=== PATIENT | female | born 1960 | race Caucasian/White ===

== ENCOUNTER → 2016-12-06 | Outpatient (CLI) | payer OTHER ==
--- NOTE | 2016-12-06 14:05 | CT ---
EXAMINATION TYPE: CT ChestAbdPelvis w con DATE OF EXAM: 12/06/2016 1:35 PM COMPARISON: CT CAP June 03, 2016. Original CT July 19, 2015 HISTORY: follow up non-hodgkins lymphoma CT DLP: 503.8 mGycm. Automated Exposure Control for Dose Reduction was Utilized. CONTRAST: CT scan of the thorax, abdomen and pelvis is performed with oral and with IV Contrast, patient inject ed with 100 mL of Omnipaque 300. FINDINGS: LUNGS: There is fairly moderate emphysematous change in both lungs redemonstrated. No suspicious par enchymal nodule or mass is present bilaterally. There is no pleural effusion or pneumothorax seen. T he tracheobronchial tree is patent. MEDIASTINUM: There are no greater than 1 cm hilar or mediastinal lymph nodes. No cardiomegaly or pe ricardial effusion is seen. OTHER: No additional significant abnormality is seen. LIVER/GB: No significant abnormality is appreciated. PANCREAS: No significant abnormality is seen. SPLEEN: No significant abnormality is seen. ADRENALS: Slight nonspecific nodular thickening to left adrenal gland is stable.. KIDNEYS: No significant abnormality is seen. BOWEL: Oral contrast reaches level of the mid transverse colon. There is no suspicious small or large bowel dilatation seen. GENITAL ORGANS: No gross abnormality seen. LYMPH NODES: No greater than 1cm abdominal or pelvic lymph nodes are appreciated on current study. Ma rked improvement in right inguinal and bilateral groin adenopathy since original study is noted. Stab le slightly prominent but subcentimeter left groin lymph node on axial image 105 is noted. OSSEOUS STRUCTURES: No significant abnormality is seen. OTHER: There appears to be some stable narrowing of the celiac axis at its origin on sagittal image 6 2 with poststenotic dilatation or more likely tortuosity. A median arcuate ligament syndrome is not e ntirely excluded. IMPRESSION: No new mass or adenopathy is seen to suggest neoplastic recurrence.
== END | disposition home or self-care (01) ==
LOC: RADCTMAIN 12:34
PROVIDERS: ATTEND Internal Medicine Hematology & Oncology
DX: C85.90 Non-Hodgkin lymphoma, unspecified, unspecified site (principal)
CPT/HCPCS: 71260; 74177; Q9967

== ENCOUNTER → 2016-12-06 | Outpatient (CLI) | payer OTHER ==
--- NOTE | 2016-12-06 13:57 | CT ---
EXAMINATION TYPE: CT upper extremity LT wo con DATE OF EXAM: 12/06/2016 1:31 PM COMPARISON: NONE HISTORY: Posterior elbow pain and swelling CT DLP: 149.9 mGycm Automated exposure control for dose reduction was used. FINDINGS: No acute fracture or dislocation in left elbow is identified. Ulnohumeral and radial ulnar articulati ons are maintained. No worrisome lytic or sclerotic lesion is evident. Distal triceps tendon attachment on olecranon is intact. Biceps tendon attachment on the radial tuber osity is intact. Muscle bulk is preserved. No suspicious ill-defined or focal fluid collection is seen. No worrisome s olid or cystic mass is noted. No suspicious skin thickening is identified. IMPRESSION: NO SIGNIFICANT FINDING IS SEEN TO ACCOUNT FOR PATIENT'S SYMPTOMS.
== END | disposition home or self-care (01) ==
LOC: RADCTMAIN 12:37
PROVIDERS: ATTEND Family Medicine
DX: C82.48 Follicular lymphoma grade IIIb, lymph nodes of multiple sites (principal); M25.522 Pain in left elbow

== ENCOUNTER → 2016-12-23 | Outpatient (CLI) | payer OTHER ==
[~2016-12-23] MED LIST: ACETAMINOPHEN TAB 325 MG TAB PO NR; FAMOTIDINE 20 MG/2 ML VIAL IV NR; SODIUM CHLORIDE 0.9% 250 ML in EMPTY BAG 1 BAG IV PRN; SODIUM CHLORIDE 0.9% 500 ML in EMPTY BAG 1 BAG IV PRN; diphenhydrAMINE 50 MG/ML 1 ML VIAL IVP NR; methylPREDNISolone SOD SUCCI 125 MG/2 ML VIAL IV NR; riTUXimab 660 MG in SODIUM CHLORIDE 0.9% 500 ML IV ONE
[2016-12-23 09:49] VITALS: RESP 18; TEMP 98
[2016-12-23 10:14] LABS: Basophils % (A) 1 %; CH 33.7; CHCM 34.8; Eosinophils # (A) 0.1 k/uL (0-0.7); Eosinophils % (A) 2 %; HCT 42.7 % (34.0-46.0); HDW 2.57; HGB 14.2 gm/dL (11.4-16.0); Luc # (Auto) 0.15; Luc % (Auto) 4; Lymphocytes # (A) 0.4 k/uL (1.0-4.8); Lymphocytes % (A) 11 %; MCH 32.3 pg (25.0-35.0); MCHC 33.2 g/dL (31.0-37.0); MCV 97.2 fL (80.0-100.0); Mean Platelet Volume 7.1; Monocytes # (A) 0.3 k/uL (0-1.0); Monocytes % (A) 7 %; Neutrophils # (A) 2.9 k/uL (1.3-7.7); Neutrophils % (A) 75 %; RBC 4.39 m/uL (3.80-5.40); WBC 3.9 k/uL (3.8-10.6); WBC (Perox) 4.01
[2016-12-23 12:48] VITALS: BP 142/79; PULSE 67
== END | disposition home or self-care (01) ==
LOC: PROCWHC3 09:35
PROVIDERS: ATTEND Internal Medicine Hematology & Oncology
DX: C82.48 Follicular lymphoma grade IIIb, lymph nodes of multiple sites (principal)
CPT/HCPCS: 85025; 96375; 96413; 96415; 36415; J1200; J2930; J9310

== ENCOUNTER → 2017-03-24 | Outpatient (CLI) | payer OTHER ==
[~2017-03-24] MED LIST changes: +riTUXimab 660 MG in SODIUM CHLORIDE 0.9% 500 ML IV NR; -riTUXimab 660 MG in SODIUM CHLORIDE 0.9% 500 ML IV ONE
[2017-03-24 09:48] VITALS: TEMP 98.3
[2017-03-24 10:25] LABS: Basophils % (A) 1 %; CH 33.6; CHCM 34.2; Eosinophils # (A) 0.1 k/uL (0-0.7); Eosinophils % (A) 2 %; HDW 2.45; HGB 14.9 gm/dL (11.4-16.0); Luc # (Auto) 0.12; Luc % (Auto) 3; Lymphocytes # (A) 0.4 k/uL (1.0-4.8); Lymphocytes % (A) 9 %; MCH 33.3 pg (25.0-35.0); MCHC 33.7 g/dL (31.0-37.0); MCV 98.7 fL (80.0-100.0); Mean Platelet Volume 7.2; Monocytes # (A) 0.3 k/uL (0-1.0); Monocytes % (A) 6 %; Neutrophils # (A) 3.4 k/uL (1.3-7.7); Neutrophils % (A) 80 %; RBC 4.46 m/uL (3.80-5.40); RDW 12.4 % (11.5-15.5); WBC 4.2 k/uL (3.8-10.6); WBC (Perox) 4.01
[2017-03-24 12:41] VITALS: BP 121/70; PULSE 66; RESP 16
== END ==
LOC: PROCWHC3 09:40
PROVIDERS: ATTEND Internal Medicine Hematology & Oncology
DX: Z51.11 Encounter for antineoplastic chemotherapy (principal); C82.90 Follicular lymphoma, unspecified, unspecified site
CPT/HCPCS: 85025; 96375; 96413; 96415; 36415; J1200; J2930; J9310

== ENCOUNTER → 2017-06-16 | Outpatient (CLI) | payer OTHER ==
--- NOTE | 2017-06-16 14:10 | CT ---
EXAMINATION TYPE: CT ChestAbdPelvis w con DATE OF EXAM: 06/16/2017 COMPARISON: 12/06/2016 HISTORY: Non-Hodgkins lymphoma Stage III CT DLP: 1872 mGycm. Automated Exposure Control for Dose Reduction was Utilized. CONTRAST: CT scan of the thorax, abdomen and pelvis is performed with IV Contrast, patient injected with 100 mL of Omnipaque 300. FINDINGS: LUNGS: The moderate centrilobular emphysematous changes are appreciated. [place] diaphragmatic christin ia seen. 2 mm pulmonary nodule is present within the right middle lobe on series 4 image 36, retrospe ctively unchanged from the prior exam. Lungs are grossly clear, there is no concerning parenchymal ma ss or nodule identified. There is no pleural effusion or pneumothorax seen. The tracheobronchial t ree is patent. MEDIASTINUM: There are no greater than 1 cm hilar or mediastinal lymph nodes. No pericardial effusi on is seen. OTHER: No additional significant abnormality is seen. LIVER/GB: No significant abnormality is appreciated. PANCREAS: No significant abnormality is seen. SPLEEN: No significant abnormality is seen. ADRENALS: The previously described slight nodular thickening of the left adrenal gland is less pronou nced on the prior examinations and of doubtful clinical significance. KIDNEYS: No significant abnormality is seen. BOWEL: No significant abnormality is seen. GENITAL ORGANS: No gross abnormality seen. LYMPH NODES: No greater than 1cm abdominal or pelvic lymph nodes are appreciated. Continued improveme nt of the previously seen bilateral superficial inguinal adenopathy with all visualized lymph nodes c ontaining fatty guadalupe and sub-5 mm. OSSEOUS STRUCTURES: Chronic endplate sclerosis is present of L5 and L4. Degenerative disc disease is seen at L4-L5 and L5-S1. OTHER: No significant additional abnormality is seen. VASCULATURE: There continues to be narrowing of the celiac axis with a short segment area of nonocclu sive stenosis measuring 4 mm wide and 9 mm in length with post stenotic dilatation. Again median arcu ate ligament syndrome is a possibility. IMPRESSION: Continued response to treatment with no enlarged or abnormal morphologically appearing ly mph nodes within the chest abdomen or pelvis. No findings concerning for visceral or osseous metastas is.
== END | disposition home or self-care (01) ==
LOC: RADCTMAIN 13:21
PROVIDERS: ATTEND Internal Medicine Hematology & Oncology
DX: C82.48 Follicular lymphoma grade IIIb, lymph nodes of multiple sites (principal)
CPT/HCPCS: 71260; 74177; Q9967

== ENCOUNTER → 2017-06-30 | Outpatient (CLI) | payer OTHER ==
[~2017-06-30] MED LIST changes: -FAMOTIDINE 20 MG/2 ML VIAL IV NR; +FAMOTIDINE 20 MG/2 ML VIAL IVP NR; -SODIUM CHLORIDE 0.9% 250 ML in EMPTY BAG 1 BAG IV PRN; -methylPREDNISolone SOD SUCCI 125 MG/2 ML VIAL IV NR; +methylPREDNISolone SOD SUCCI 125 MG/2 ML VIAL IVP NR; -riTUXimab 660 MG in SODIUM CHLORIDE 0.9% 500 ML IV NR; +riTUXimab 660 MG in SODIUM CHLORIDE 0.9% 500 ML IV SCH
[2017-06-30 10:00] VITALS: TEMP 97.4
[2017-06-30 10:41] LABS: Basophils # (A) 0.1 k/uL (0-0.2); Basophils % (A) 1 %; CH 34.6; CHCM 36.2; Eosinophils # (A) 0.1 k/uL (0-0.7); Eosinophils % (A) 2 %; HDW 2.53; HGB 13.9 gm/dL (11.4-16.0); Luc # (Auto) 0.13; Luc % (Auto) 3; Lymphocytes # (A) 0.4 k/uL (1.0-4.8); Lymphocytes % (A) 9 %; MCH 33.3 pg (25.0-35.0); MCHC 34.7 g/dL (31.0-37.0); MCV 95.9 fL (80.0-100.0); Mean Platelet Volume 8.1; Monocytes # (A) 0.3 k/uL (0-1.0); Monocytes % (A) 6 %; Neutrophils # (A) 3.7 k/uL (1.3-7.7); Neutrophils % (A) 79 %; RBC 4.17 m/uL (3.80-5.40); RDW 12.9 % (11.5-15.5); WBC 4.6 k/uL (3.8-10.6); WBC (Perox) 4.85
[2017-06-30 13:09] VITALS: BP 110/72; PULSE 66; RESP 16
== END | disposition home or self-care (01) ==
LOC: PROCWHC3 09:42
PROVIDERS: ATTEND Internal Medicine Hematology & Oncology
DX: Z51.11 Encounter for antineoplastic chemotherapy (principal); C82.48 Follicular lymphoma grade IIIb, lymph nodes of multiple sites
CPT/HCPCS: 85025; 96375; 96413; 96415; 36415; J1200; J2930; J9310

== ENCOUNTER 2017-09-05 11:14 | Day surgery (SDC) | payer OTHER ==
[2017-08-31 14:09] VITALS: BMI 24.4
[~2017-09-05 11:14] MED LIST changes: -ACETAMINOPHEN TAB 325 MG TAB PO NR; +ALPRAZolam 0.25 MG TAB PO PRN; +ASPIRIN 325 MG TAB PO STA; -FAMOTIDINE 20 MG/2 ML VIAL IVP NR; +SODIUM CHLORIDE 0.9% 1,000 ML in EMPTY BAG 1 BAG IV ONE; -SODIUM CHLORIDE 0.9% 500 ML in EMPTY BAG 1 BAG IV PRN; -diphenhydrAMINE 50 MG/ML 1 ML VIAL IVP NR; -methylPREDNISolone SOD SUCCI 125 MG/2 ML VIAL IVP NR; -riTUXimab 660 MG in SODIUM CHLORIDE 0.9% 500 ML IV SCH
[2017-09-05 12:05] VITALS: RESP 16; TEMP 98.7
[2017-09-05] MEDS ORDERED: MIDAZOLAM 2 MG/2 ML VIAL IVP ONE (12:36)
[2017-09-05] MEDS ORDERED: LIDOCAINE 2% INJ 20 MG/ML SQ ONE (12:40)
[2017-09-05] MEDS: VERAPAMIL SYRINGE (5 MG/10 ML) INTRAARTER ONE ×2 (12:41→12:58)
[2017-09-05] MEDS ORDERED: HEPARIN SODIUM 1,000 UN/ML (10ML VL) IV ONE (12:43)
[2017-09-05] MEDS ORDERED: IODIXANOL 320 MG/ML 100 ML INTRAARTER ONE (12:59)
[2017-09-05] MEDS ORDERED: SODIUM CHLORIDE 0.9% 1,000 ML IV SCH (13:15)
--- NOTE | 2017-09-05 14:09 | IR ---
Fluoroscopy HISTORY: Abnormal CT 3.7 minutes fluoroscopy time supplied to the referring clinician. 51 intraoperative C-arm images doc ument the procedure. See dictated report from cardiology.
--- NOTE | 2017-09-05 15:27 | AN ---
ANGIOGRAPHY REPORT DATE OF SERVICE: 09/05/2017 PERFORMING PHYSICIAN: Jayson Rodney MD, [employer]. PROCEDURE PERFORMED: 1. An abdominal aortogram. 2. Nonselective mesenteric artery angiogram. INDICATION: This is a pleasant 57-year-old female patient who was experiencing abdominal discomfort and underwent a CT scan of the abdomen which showed disease involving the celiac trunk. She was seen and evaluated by Dr. Coleman who has sent the patient for me for further evaluation. COMPLICATION: None. LEVEL OF SEDATION: Moderate. APPROACH: Right radial artery. PROCEDURE DESCRIPTION: After obtaining an informed consent, the patient was brought to the cardiac qc lab technician. The right radial artery was cannulated using micropuncture technique, The micropuncture wire passed easily. Then I placed a 5-[place] sheath in the right radial artery. Subsequently I did an abdominal aortogram and nonselective mesenteric artery angiogram using 5-[place] pigtail catheter. The procedure was completed without any complication. SELECTIVE PERIPHERAL ANGIOGRAM: 1. The infrarenal aorta appeared to have mild disease only. 2. The celiac trunk appeared to have disease proximally in the range of 50% only. 3. The SMA is angiographically normal. 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 POSTPROCEDURE MANAGEMENT: Maximize medical treatment and follow up with the patient. MMODL / IJN: [id number] /
[2017-09-05 16:33] VITALS: BP 123/59; PULSE 68
== END 2017-09-05 17:02 | disposition home or self-care (01) ==
LOC: CATHCVL 11:14
PROVIDERS: ATTEND Internal Medicine Interventional Cardiology
DX: I77.4 Celiac artery compression syndrome (principal); F17.210 Nicotine dependence, cigarettes, uncomplicated; C85.90 Non-Hodgkin lymphoma, unspecified, unspecified site; Z82.49 Family history of ischemic heart disease and other diseases of the circulatory system; Z79.899 Other long term (current) drug therapy; Z79.1 Long term (current) use of non-steroidal anti-inflammatories (NSAID); Z79.51 Long term (current) use of inhaled steroids; Z88.5 Allergy status to narcotic agent
CPT/HCPCS: 36200; 75625; C1894; J2001; J2250; Q9967; J1644

== ENCOUNTER → 2017-09-29 | Outpatient (CLI) | payer OTHER ==
[~2017-09-29] MED LIST changes: +ACETAMINOPHEN TAB 325 MG TAB PO NR; -ALPRAZolam 0.25 MG TAB PO PRN; -ASPIRIN 325 MG TAB PO STA; +FAMOTIDINE 20 MG/2 ML VIAL IV NR; +FAMOTIDINE 20 MG/2 ML VIAL IV ONE; -SODIUM CHLORIDE 0.9% 1,000 ML in EMPTY BAG 1 BAG IV ONE; +SODIUM CHLORIDE 0.9% 500 ML in EMPTY BAG 1 BAG IV PRN; +diphenhydrAMINE 50 MG/ML 1 ML VIAL IVP NR; +methylPREDNISolone SOD SUCCI 125 MG/2 ML VIAL IV NR; +riTUXimab 660 MG in SODIUM CHLORIDE 0.9% 500 ML IV NR
[2017-09-29 10:02] VITALS: TEMP 98
[2017-09-29 10:25] LABS: Basophils % (A) 1 %; CH 32.8; CHCM 33.5; Eosinophils # (A) 0.1 k/uL (0-0.7); Eosinophils % (A) 1 %; HCT 43.5 % (34.0-46.0); HGB 14.4 gm/dL (11.4-16.0); Luc # (Auto) 0.08; Luc % (Auto) 2; Lymphocytes # (A) 0.5 k/uL (1.0-4.8); Lymphocytes % (A) 9 %; MCH 32.5 pg (25.0-35.0); MCV 98.3 fL (80.0-100.0); Mean Platelet Volume 8.4; Monocytes # (A) 0.4 k/uL (0-1.0); Monocytes % (A) 8 %; Neutrophils % (A) 80 %; RBC 4.43 m/uL (3.80-5.40); RDW 13.1 % (11.5-15.5); WBC (Perox) 4.93
[2017-09-29 12:09] VITALS: RESP 18
[2017-09-29 13:35] VITALS: BP 115/77; PULSE 70
== END | disposition home or self-care (01) ==
LOC: PROCWHC3 09:41
PROVIDERS: ATTEND Internal Medicine Hematology & Oncology
DX: C82.48 Follicular lymphoma grade IIIb, lymph nodes of multiple sites (principal)
CPT/HCPCS: 85025; 96375; 96413; 96415; 36415; J1200; J2930; J9310

== ENCOUNTER → 2017-12-15 | Outpatient (CLI) | payer OTHER ==
--- NOTE | 2017-12-15 13:50 | CT ---
EXAMINATION TYPE: CT ChestAbdPelvis w con DATE OF EXAM: 12/15/2017 COMPARISON: Prior CT chest abdomen pelvis 06/16/2017 HISTORY: Lymphoma CT DLP: 1523 mGycm Automated exposure control for dose reduction was used. CONTRAST: CT scan of the chest, abdomen and pelvis is performed with Oral Contrast and with IV Contrast, patien t injected with 100 ml mL of Omnipaque 300. FINDINGS: LUNGS: Extensive emphysematous changes are again noted within the lungs. No endobronchial lesion, ple ural or pericardial effusion. Posterior diaphragmatic hernias containing fat. MEDIASTINUM: There are no greater than 1 cm hilar or mediastinal lymph nodes. No pericardial effusi on is seen. AORTA: No significant abnormality is seen. OTHER: No additional significant abnormality is seen. LIVER/GB: No significant abnormality is appreciated. PANCREAS: No significant abnormality is seen. SPLEEN: No significant abnormality is seen. ADRENALS: No significant abnormality is seen. KIDNEYS: No significant abnormality is seen. REPRODUCTIVE ORGANS: No gross abnormality seen. BOWEL: No significant abnormality is seen. FREE AIR: No Free Air visible. ASCITES: None seen. RETROPERITONEAL ADENOPATHY: No retroperitoneal adenopathy is seen. LYMPH NODES: No greater than 1 cm abdominal or pelvic lymph nodes are appreciated. URINARY BLADDER: No significant abnormality is seen. PELVIC ADENOPATHY: None visualized. OSSEOUS STRUCTURES: No significant interval change is seen. IMPRESSION: No evident recurrence
== END | disposition home or self-care (01) ==
LOC: RADCTMAIN 12:24
PROVIDERS: ATTEND Internal Medicine Hematology & Oncology
DX: C82.48 Follicular lymphoma grade IIIb, lymph nodes of multiple sites (principal)
CPT/HCPCS: 71260; 74177; Q9967

== ENCOUNTER → 2017-12-28 | Outpatient (CLI) | payer OTHER ==
[~2017-12-28] MED LIST changes: -ACETAMINOPHEN TAB 325 MG TAB PO NR; +ACETAMINOPHEN TAB 325 MG TAB PO ONE; -FAMOTIDINE 20 MG/2 ML VIAL IV NR; -diphenhydrAMINE 50 MG/ML 1 ML VIAL IVP NR; +diphenhydrAMINE 50 MG/ML 1 ML VIAL IVP ONE; -methylPREDNISolone SOD SUCCI 125 MG/2 ML VIAL IV NR; +methylPREDNISolone SOD SUCCI 125 MG/2 ML VIAL IV ONE; -riTUXimab 660 MG in SODIUM CHLORIDE 0.9% 500 ML IV NR; +riTUXimab 660 MG in SODIUM CHLORIDE 0.9% 500 ML IV ONE
[2017-12-28 10:30] VITALS: TEMP 97.7
[2017-12-28 10:30] LABS: Basophils % (A) 1 %; Eosinophils # (A) 0.1 k/uL (0-0.7); Eosinophils % (A) 2 %; HCT 39.6 % (34.0-46.0); HGB 13.3 gm/dL (11.4-16.0); Lymphocytes # (A) 0.5 k/uL (1.0-4.8); Lymphocytes % (A) 11 %; MCH 32.3 pg (25.0-35.0); MCHC 33.5 g/dL (31.0-37.0); MCV 96.3 fL (80.0-100.0); Mean Platelet Volume 7.7; Monocytes # (A) 0.4 k/uL (0-1.0); Monocytes % (A) 8 %; Neutrophils # (A) 3.8 k/uL (1.3-7.7); Neutrophils % (A) 77 %; Platelet Count 163 k/uL (150-450); RBC 4.11 m/uL (3.80-5.40); RDW 12.2 % (11.5-15.5)
[2017-12-28 12:22] VITALS: RESP 14
[2017-12-28 14:48] VITALS: BP 136/60; PULSE 75
== END | disposition home or self-care (01) ==
LOC: PROCWHC3 09:31
PROVIDERS: ATTEND Internal Medicine Hematology & Oncology
DX: C82.48 Follicular lymphoma grade IIIb, lymph nodes of multiple sites (principal)
CPT/HCPCS: 85025; 96375; 96413; 96415; 36415; J1200; J2930; J9310

== ENCOUNTER → 2018-03-24 | Outpatient (CLI) | payer OTHER ==
[2018-03-24 14:57] LABS: Basophils % (A) 1 %; Eosinophils # (A) 0.1 k/uL (0-0.7); Eosinophils % (A) 2 %; HGB 14.5 gm/dL (11.4-16.0); Lymphocytes # (A) 0.5 k/uL (1.0-4.8); Lymphocytes % (A) 12 %; MCH 32.8 pg (25.0-35.0); MCHC 34.4 g/dL (31.0-37.0); MCV 95.3 fL (80.0-100.0); Mean Platelet Volume 7.3; Monocytes # (A) 0.3 k/uL (0-1.0); Monocytes % (A) 7 %; Neutrophils % (A) 75 %; Platelet Count 157 k/uL (150-450); RBC 4.41 m/uL (3.80-5.40); RDW 12.3 % (11.5-15.5)
[2018-03-24 15:08] LABS: ALT 37 U/L (9-52); AST 31 U/L (14-36); Albumin 4.8 g/dL (3.5-5.0); Alkaline Phosphatase 104 U/L (38-126); Anion Gap 14 mmol/L; Blood Urea Nitrogen 11 mg/dL (7-17); Calcium 10.2 mg/dL (8.4-10.2); Carbon Dioxide 26 mmol/L (22-30); Chloride 103 mmol/L (98-107); Cholesterol 208 mg/dL (<200); Glucose 89 mg/dL (74-99); HDL Cholesterol 69 mg/dL (40-60); LDL Cholesterol,Calculated 110 mg/dL (0-99); Potassium 3.9 mmol/L (3.5-5.1); Sodium 143 mmol/L (137-145); Total Bilirubin 0.4 mg/dL (0.2-1.3); Total Protein 7.5 g/dL (6.3-8.2); Triglycerides 143 mg/dL (<150)
[2018-03-24 15:23] LABS: T4, Free (Free Thyroxine) 1.19 ng/dL (0.78-2.19)
== END | disposition home or self-care (01) ==
LOC: LABWHC1 14:27
PROVIDERS: ATTEND Family Medicine
DX: E55.9 Vitamin D deficiency, unspecified (principal); E78.5 Hyperlipidemia, unspecified; R53.81 Other malaise; Z13.220 Encounter for screening for lipoid disorders
CPT/HCPCS: 36415; 80053; 80061; 82306; 84439; 84443; 85025

== ENCOUNTER → 2018-04-26 | Outpatient (CLI) | payer OTHER ==
--- NOTE | 2018-04-27 10:42 | MM ---
Reason for exam: screening (asymptomatic). Last mammogram was performed 2 years and 3 months ago. History: Patient is postmenopausal and has history of other cancer at age 55. Physical Findings: A clinical breast exam by your physician is recommended on an annual basis and results should be correlated with mammographic findings. MG Screening Mammo w CAD Bilateral CC and MLO view(s) were taken. Prior study comparison: January 27, 2016, bilateral MG screening mammo w CAD. October 25, 2001, bilateral screening mammogram. The breast tissue is heterogeneously dense. This may lower the sensitivity of mammography. There is no discrete abnormality. No significant changes when compared with prior studies. ASSESSMENT: Negative, BI-RAD 1 RECOMMENDATION: Routine screening mammogram of both breasts in 1 year.
== END ==
LOC: RADMAMWWP 11:00
PROVIDERS: ATTEND Family Medicine
DX: Z12.31 Encounter for screening mammogram for malignant neoplasm of breast (principal)
CPT/HCPCS: 77067

== ENCOUNTER → 2018-10-16 | Outpatient (CLI) | payer OTHER ==
--- NOTE | 2018-10-16 11:49 | US ---
EXAMINATION TYPE: US gallbladder DATE OF EXAM: 10/16/2018 COMPARISON: NONE CLINICAL HISTORY: 58-year-old female R10.84 abdominal pain. TECHNIQUE: Multiple sonographic images of the right upper quadrant are obtained. FINDINGS: EXAM MEASUREMENTS: Liver Length: 12.6 cm Gallbladder Wall: 0.2 cm CBD: 0.2 cm Right Kidney: 9.5 x 4.3 x 4.6 cm Pancreas: Visualized portions within normal limits. The tail is obscured by overlying bowel gas Liver: wnl Gallbladder: wnl Evidence for sonographic Hoover's sign: no CBD: wnl Right Kidney: No hydronephrosis. IMPRESSION: Unremarkable sonographic examination of the abdomen.
== END | disposition home or self-care (01) ==
LOC: RADUSWWP 09:38
PROVIDERS: ATTEND Family Medicine
DX: R10.84 Generalized abdominal pain (principal); Z88.5 Allergy status to narcotic agent; Z88.6 Allergy status to analgesic agent
CPT/HCPCS: 76705

== ENCOUNTER → 2019-01-03 | Outpatient (CLI) | payer OTHER ==
[2019-01-03 14:56] LABS: Blood Urea Nitrogen 17 mg/dL (7-17)
--- NOTE | 2019-01-04 06:07 | CT ---
EXAMINATION TYPE: CT ChestAbdPelvis w con DATE OF EXAM: 01/03/2019 COMPARISON: 12/15/2017 and 06/16/2017 HISTORY: 58-year-old female Follicular lymphoma. NHL stage 3, arm pits and groin. TECHNIQUE: Contiguous axial scanning of the chest, abdomen, and pelvis performed with IV Contrast, pa tient injected with 100 mL of Isovue M300. Delayed images through the kidneys were obtained. Coronal/ sagittal reconstructions performed. CT DLP: 1243 mGycm Automated exposure control for dose reduction was used. FINDINGS: CHEST: Heart normal size without pericardial effusion. Mild atherosclerotic arch calcifications. Aorta normal caliber with conventional tortuous origin cristi javier. 8mm left axillary lymph node is unchanged. No thoracic lymphadenopathy. Moderate centrilobular emphysema, more moderately advanced in the upper lungs. 5 mm subpleural nodularity posterolateral right mid lung with adjacent groundglass nodularity is slig htly increased now, previously measuring 3 mm. 3 mm pulmonary nodule right middle lobe axial image 35 is unchanged. No consolidation or pleural effusion. ABDOMEN: No focal liver lesion or biliary ductal dilatation. Portal venous system is patent. Gallbladder, adrenal glands, kidneys, spleen, and pancreas appear within normal limits. Mild atherosclerotic changes in the abdominal aorta without aneurysm. Tiny fatty umbilical hernia. No mesenteric or retroperitoneal lymphadenopathy. Scattered mild to moderate stool. No pericolonic inflammatory change. Pelvis: Bladder is urine distended. Pelvic floor relaxation is demonstrated. Uterus and right ovary visualize d. Left ovary not clearly delineated. No abnormal fluid collection in the pelvis or pelvic lymphadeno kevin. Bones: Degenerative disc disease L4-L5 and L5-S1 and similar superior endplate deformities of T8 and T10. No osseous destructive process. IMPRESSION: 1. A 5 MM SUBPLEURAL PULMONARY NODULE WITH ADJACENT GROUNDGLASS NODULE IN THE RIGHT MIDLUNG IS SLIGHT LY MORE FULL, PREVIOUSLY MEASURING 3 MM. CONSIDER 6 MONTH FOLLOW-UP CT CHEST TO REASSESS. 2. OTHERWISE, NO OTHER EVIDENCE FOR RECURRENT DISEASE. 3. COPD AND INCIDENTAL PELVIC FLOOR RELAXATION.
== END | disposition home or self-care (01) ==
LOC: RADCTMAIN 14:04
PROVIDERS: ATTEND Internal Medicine Hematology & Oncology
DX: C82.48 Follicular lymphoma grade IIIb, lymph nodes of multiple sites (principal); R91.8 Other nonspecific abnormal finding of lung field; J44.9 Chronic obstructive pulmonary disease, unspecified; N81.89 Other female genital prolapse
CPT/HCPCS: 82565; 84520; 71260; 74177; 36415; Q9967

== ENCOUNTER → 2019-03-06 | Outpatient (CLI) | payer OTHER ==
[2019-03-06 17:45] LABS: LDL Cholesterol,Calculated 143.6 mg/dL (0.0-131.0); VLDL Calculation 34.4 mg/dL (5.00-40.00)
== END | disposition home or self-care (01) ==
LOC: LABWHC1 09:07
PROVIDERS: ATTEND Internal Medicine Interventional Cardiology
DX: E78.2 Mixed hyperlipidemia (principal)
CPT/HCPCS: 36415; 80061; 84450; 84460

== ENCOUNTER → 2019-07-24 | Outpatient (CLI) | payer OTHER ==
--- NOTE | 2019-07-24 23:05 | CT ---
EXAMINATION TYPE: CT ChestAbdPelvis w con DATE OF EXAM: 07/24/2019 COMPARISON: 01/03/2019 and 12/15/2017 HISTORY: 59-year-old female Follow up non Hodgkin's lymphoma. TECHNIQUE: Contiguous axial scanning of the chest, abdomen, and pelvis performed with IV Contrast, pa tient injected with 100 mL of Isovue M300. Delayed images through the kidneys were obtained. Coronal/ sagittal reconstructions performed. CT DLP: 1503 mGycm Automated exposure control for dose reduction was used. FINDINGS: CHEST: Heart normal size without pericardial effusion. Aorta normal caliber with mild atelectatic arch calcifications and conventional arch vessel branching anatomy. No thoracic lymphadenopathy by CT size criteria. 8 mm left axillary lymph node is unchanged. Moderate centrilobular emphysema. 5 mm subpleural pulmonary nodule posterolateral right mid lung with adjacent groundglass nodularity i s unchanged for 6 months suggesting a benign etiology. 3 mm right middle lobe pulmonary nodule, axial image 34 is unchanged. No consolidation or pleural effusion. ABDOMEN: No focal liver lesion or biliary ductal dilatation. Portal venous system is patent. Gallbladder, adrenal glands, kidneys, spleen, and pancreas appear within normal limits. Tiny fatty umbilical hernia. No dilated small bowel, free fluid, or free air. Mild to moderate stool burden. No pericolonic inflammatory change. No mesenteric or retroperitoneal lymphadenopathy. PELVIS: Bladder urine distended. Pelvic floor relaxation. Uterus is visualized. Neither ovary clearly identif ied. No abnormal fluid collection in the pelvis or pelvic/inguinal lymphadenopathy. BONES: Degenerative disc disease mid to lower lumbar spine. No osseous destructive process. Mild superior en dplate deformities of T8 and T10 are unchanged. IMPRESSION: 1. NO SUSPICIOUS LYMPHADENOPATHY TO SUGGEST DISEASE RECURRENCE. 2. A FEW PULMONARY NODULES ON THE RIGHT MEASURING UP TO 5 MM ARE STABLE FOR 6 MONTHS SUGGESTING A [facility] IGN ETIOLOGY. ADDITIONAL FOLLOW-UP CLINICALLY INDICATED. 3. COPD WITH MODERATE EMPHYSEMA.
== END | disposition home or self-care (01) ==
LOC: RADCTMAIN 12:09
PROVIDERS: ATTEND Internal Medicine Hematology & Oncology
DX: J43.9 Emphysema, unspecified (principal); C82.48 Follicular lymphoma grade IIIb, lymph nodes of multiple sites
CPT/HCPCS: 71260; 74177; Q9967 ×2

== ENCOUNTER → 2019-07-25 | Outpatient (CLI) | payer OTHER ==
--- NOTE | 2019-07-27 14:47 | MM ---
Reason for exam: screening (asymptomatic). Last mammogram was performed 1 year and 3 months ago. History: Patient is postmenopausal and has history of other cancer at age 55. Physical Findings: A clinical breast exam by your physician is recommended on an annual basis and results should be correlated with mammographic findings. MG Screening Mammo w CAD Bilateral CC and MLO view(s) were taken. Prior study comparison: April 26, 2018, bilateral MG screening mammo w CAD. January 27, 2016, bilateral MG screening mammo w CAD. The breast tissue is heterogeneously dense. This may lower the sensitivity of mammography. No significant changes when compared with prior studies. ASSESSMENT: Benign, BI-RAD 2 RECOMMENDATION: Routine screening mammogram of both breasts in 1 year.
== END | disposition home or self-care (01) ==
LOC: RADMAMWWP 11:35
PROVIDERS: ATTEND Family Medicine
DX: Z12.31 Encounter for screening mammogram for malignant neoplasm of breast (principal)
CPT/HCPCS: 77067

== ENCOUNTER → 2020-01-15 | Outpatient (CLI) | payer OTHER ==
--- NOTE | 2020-01-15 15:06 | US ---
EXAMINATION TYPE: US pelvis complete transvag DATE OF EXAM: 01/15/2020 COMPARISON: None CLINICAL HISTORY: BURNING WITH URINATION R30.0. Bilateral flank pain. TECHNIQUE: Transvaginal (TV) and Transabdominal (TA) . Transabdominal sonographic images of the pel vis were acquired. Transvaginal sonographic images were medically necessary to better assess the fol lowing anatomy: Ovaries Date of LMP: Postmenopausal, EXAM MEASUREMENTS: Uterus: 5.6 x 3.4 x 2.1 cm Endometrial Stripe: 0.2 cm 1. Uterus: Anteverted Appears small in size 2. Endometrium: wnl 3. Right Ovary: Obscured by overlying bowel gas 4. Left Ovary: Obscured by overlying bowel gas 5. Bilateral Adnexa: wnl 6. Posterior cul-de-sac: no free fluid IMPRESSION: Atrophic size of the uterus with no endometrial thickening. Ovaries are obscured by bowel gas.
== END | disposition home or self-care (01) ==
LOC: RADUSWWP 14:18
PROVIDERS: ATTEND Family Medicine
DX: N85.8 Other specified noninflammatory disorders of uterus (principal); Z85.79 Personal history of other malignant neoplasms of lymphoid, hematopoietic and related tissues; Z79.891 Long term (current) use of opiate analgesic; Z79.899 Other long term (current) drug therapy
CPT/HCPCS: 76830; 76856

== ENCOUNTER 2020-06-20 08:34 | Day surgery (SDC) | payer OTHER ==
[2020-06-18 10:30] VITALS: BMI 23.3
[~2020-06-20 08:34] MED LIST changes: -ACETAMINOPHEN TAB 325 MG TAB PO ONE; -FAMOTIDINE 20 MG/2 ML VIAL IV ONE; +LACTATED RINGERS 1,000 ML IV SCH; -SODIUM CHLORIDE 0.9% 500 ML in EMPTY BAG 1 BAG IV PRN; -diphenhydrAMINE 50 MG/ML 1 ML VIAL IVP ONE; -methylPREDNISolone SOD SUCCI 125 MG/2 ML VIAL IV ONE; -riTUXimab 660 MG in SODIUM CHLORIDE 0.9% 500 ML IV ONE
[2020-06-20] MEDS ORDERED: LIDOCAINE 1% (10MG/ML) FOR IV START INTRADERMA ONE (09:00)
[2020-06-20 09:12] VITALS: RESP 16; TEMP 97.1
[2020-06-20] MEDS ORDERED: LIDOCAINE 1% INJ 10MG/ML (20 ML MDV) ONE (10:16)
[2020-06-20] MEDS ORDERED: MIDAZOLAM 2 MG/2 ML VIAL ONE (10:16)
[2020-06-20] MEDS ORDERED: PROPOFOL 10 MG/ML 20 ML VIAL IV ONE (10:16)
[2020-06-20] MEDS ORDERED: fentaNYL (PF) 50 MCG/ML 2 ML AMP ONE (10:16)
--- NOTE | 2020-06-20 10:38 | P.PCN ---
Date of Procedure: 06/20/20 Procedure(s) Performed: Brief history: Patient is a pleasant 60-year-old white female scheduled for an elective upper endoscopy as well as colonoscopy as a part of evaluation and of GERD Hemoccult- positive Procedure performed: Esophagogastroduodenoscopy with biopsy Colonoscopy Preoperative diagnosis: GERD Hemoccult-positive stool Anesthesia: [facility] [place] Procedure: After informed consent was obtained from the patient was brought into the endoscopy unit and IV sedation was administered by anesthesia under continuous monitoring. Initially upper endoscopy was done. The Olympus GF 160 video endoscope was inserted inserted into the mouth and esophagus intubated without any difficulty and was gradually advanced into the stomach and duodenum and carefully examined. The bulb and second part of the duodenum appeared normal. The scope was then withdrawn into the stomach adequately insufflated with air and upon careful examination the antrum and mild gastritis and biopsies were done from this area. The body, cardia and fundus appeared normal. The scope was then withdrawn into the esophagus. The GE junction was located at 40 cm to the incisors. It appeared regular witone superficial erosion consistent with LA grade A reflux esophagitis.Rest of the esophagus appeared normal. Patient tolerated the procedure well. At this time the patient continued to remain sedation. Initial digital rectal examination was normal. Olympus CF 160 video colonoscope was then inserted into the rectum and gradually advanced to the cecum without any difficulty. Careful examination was performed as the scope was gradually being withdrawn. The prep was excellent. The cecum, ascending colon, transverse colon, descending colon, sigmoid colon and rectum appeared normal. Retroflexion was performed in the rectum and no lesions were noted. Patient tolerated the procedure well. Impression: 1. Upper endoscopy revealed mild antral gastritis and LA grade A reflux esophagitis 2. Colonoscopy was essentially within normal limits with no evidence of colorectal neoplasia Recommendations: Findings of this examination were discussed with the patient as well as her family. She was advised to follow with the biopsy results. She can have a repeat screening colonoscopy in 10 years
[2020-06-20 11:10] VITALS: BP 167/70; PULSE 55
== END 2020-06-20 11:20 | disposition home or self-care (01) ==
LOC: ORWHC2ENDO 08:34
PROVIDERS: ATTEND Internal Medicine Gastroenterology
DX: K21.0 Gastro-esophageal reflux disease with esophagitis (principal); K29.50 Unspecified chronic gastritis without bleeding; R19.5 Other fecal abnormalities; J45.909 Unspecified asthma, uncomplicated; F17.200 Nicotine dependence, unspecified, uncomplicated; E78.5 Hyperlipidemia, unspecified; Z91.048 Other nonmedicinal substance allergy status; Z88.5 Allergy status to narcotic agent; Z79.890 Hormone replacement therapy; Z79.82 Long term (current) use of aspirin; Z79.899 Other long term (current) drug therapy; Z88.8 Allergy status to other drugs, medicaments and biological substances; Z86.73 Personal history of transient ischemic attack (TIA), and cerebral infarction without residual deficits; Z79.51 Long term (current) use of inhaled steroids
CPT/HCPCS: 88305; 45378; 43239; J2250; J2001; J3010; J2704

== ENCOUNTER → 2023-06-02 | Outpatient (CLI) | payer MEDICARE, OTHER ==
--- NOTE | 2023-06-02 15:25 | US ---
EXAMINATION TYPE: US kidneys/renal and bladder DATE OF EXAM: 06/02/2023 COMPARISON: NONE CLINICAL INDICATION: Female, 63 years old with history of R35.0 FREQUENCY OF MICTURITION; frequent ur ination EXAM MEASUREMENTS: Right Kidney: 10.2 x 4.5 x 3.9 cm Left Kidney: 9.3 x 5.1 x 3.9 cm Right Kidney: No hydronephrosis or masses seen Left Kidney: No hydronephrosis or masses seen Bladder: anechoic Bilateral Jets seen: Yes Prevoid: 217 ML Postvoid: 54 ML IMPRESSION: 1. No hydronephrosis. 2. Increased postvoid bladder volume of 54 mL. This measurement suggests urinary retention.
== END | disposition home or self-care (01) ==
LOC: RADUSWWP 14:01
PROVIDERS: ATTEND Family Medicine
DX: R35.0 Frequency of micturition (principal)
CPT/HCPCS: 76770

== ENCOUNTER → 2023-07-12 | Outpatient (CLI) | payer MEDICARE, OTHER ==
[2023-07-12 12:01] LABS: African American GFR (CKD) >90 (>60 ml/min/1.73 sqM); Blood Urea Nitrogen 15 mg/dL (7-17); Non-African American GFR(CKD) >90 (>60 ml/min/1.73 sqM)
--- NOTE | 2023-07-12 14:09 | CT ---
EXAMINATION TYPE: CT ChestAbdPelvis w con DATE OF EXAM: 07/12/2023 COMPARISON: 07/24/2019 HISTORY: C82.48 follicular lymphoma CONTRAST: CT scan of the chest, abdomen and pelvis is performed with Oral Contrast and with IV Contrast, patien t injected with 100 mL of Isovue 300. [address] Chest: LUNGS: The lungs are clear and free of infiltrate or atelectasis. Enlarging right lower lobe pulmonar y nodule at superior segment laterally measuring 8.7 mm versus prior measurement provided above 5 mm. There is also a pulmonary nodule measuring 2 mm in the region of the right upper lobe image 36 uncha nged from prior study. Mild to moderate centrilobular emphysema noted. No pleural effusion or CT evid ence of interstitial lung disease. MEDIASTINUM: Thoracic aorta is of normal caliber. The heart is not enlarged. No evidence for media stinal mass or adenopathy. HILAR STRUCTURES: No evidence for mass. No hilar adenopathy is appreciated. OTHER: No significant abnormality. CONTRAST CT ABDOMEN AND PELVIS FINDINGS: LIVER/GB: No calcified gallstones. No space occupying hepatic lesion. Biliary tree is of normal ca liber. PANCREAS: No inflammation. No distinct mass. SPLEEN: No splenic enlargement. No lesion seen. ADRENALS: No nodule. No thickening. KIDNEYS/BLADDER: No hydronephrosis. No nephrolithiasis. No disctinct renal mass. BOWEL: Normal appendix. Normal bowel caliber. No inflammation. GENITAL ORGANS: No gross abnormality. LYMPH NODES: No greater than 1cm abdominal or pelvic lymph nodes are appreciated. AORTA: No significant abnormality. OSSEOUS STRUCTURES: No significant abnormality is seen. OTHER: No significant additional abnormality is seen. IMPRESSION: 1. No evidence of adenopathy within the chest abdomen or pelvis. 2. Enlarging pulmonary nodule superior segment right upper lobe laterally. Pet CT or short-term follo w-up study in 3-4 months advised.
== END | disposition home or self-care (01) ==
LOC: RADCTMAIN 10:42
PROVIDERS: ATTEND Internal Medicine Hematology & Oncology
DX: Z09 Encounter for follow-up examination after completed treatment for conditions other than malignant neoplasm (principal); C82.48 Follicular lymphoma grade IIIb, lymph nodes of multiple sites; M25.50 Pain in unspecified joint; R91.1 Solitary pulmonary nodule
CPT/HCPCS: 82565; 84520; 71260; 74177; 36415; Q9967

== ENCOUNTER → 2023-10-12 | Outpatient (CLI) | payer MEDICARE, OTHER ==
[2023-10-12 12:52] LABS: African American GFR (CKD) >90 (>60 ml/min/1.73 sqM); Blood Urea Nitrogen 16 mg/dL (7-17); Non-African American GFR(CKD) >90 (>60 ml/min/1.73 sqM)
--- NOTE | 2023-10-12 13:40 | CT ---
EXAMINATION TYPE: CT chest w con DATE OF EXAM: 10/12/2023 COMPARISON: 07/12/2023 HISTORY: /u lymphoma.monitor mass in chest measurements CT DLP: 212.60 mGycm Automated exposure control for dose reduction was used. CONTRAST: CT scan of the chest is performed with IV Contrast, patient injected with 70ml mL of Isovue 300. FINDINGS: LUNGS: Right lower lobe pulmonary nodule measuring 1 cm versus 9 mm previously. No additional nodules identified. Centrilobular emphysema seen. No airspace consolidation or volume loss. No pleural effus ion. MEDIASTINUM: There are no greater than 1 cm hilar or mediastinal lymph nodes. No pericardial effusi on is seen. Thoracic aorta is of normal caliber. The heart is not enlarged. UPPER ABDOMEN: No significant abnormality appreciated. OTHER: No additional significant abnormality is seen. IMPRESSION: Right lower lobe pulmonary nodule measuring 1 cm versus 9 mm previously. No additional nodules identi fied.
== END | disposition home or self-care (01) ==
LOC: RADCTMAIN 11:42
PROVIDERS: ATTEND Internal Medicine Hematology & Oncology
DX: C82.48 Follicular lymphoma grade IIIb, lymph nodes of multiple sites (principal); Z09 Encounter for follow-up examination after completed treatment for conditions other than malignant neoplasm; M25.50 Pain in unspecified joint; R91.1 Solitary pulmonary nodule
CPT/HCPCS: 82565; 84520; 71260; 36415; Q9967

== ENCOUNTER → 2024-01-11 | Outpatient (CLI) | payer MEDICARE, OTHER ==
--- NOTE | 2024-01-11 12:51 | CT ---
Exam: CT Chest without contrast. Date: 01/11/2024. Comparison: Multiple previous with the most recent from 10/12/2023. History: Lymphoma. Technique: CT examination of the chest was performed without contrast. Coronal and sagittal reformats were performed. CT dose lowering techniques were used, to include: automated exposure control, adjus tment for patient size, and/or use of iterative reconstruction. FINDINGS: Mediastinum and [place]: There is no axillary, mediastinal or hilar lymphadenopathy. Pleural and Pericardial spaces: There are no pleural or pericardial effusions. Upper Abdomen: The visualized upper abdomen is unremarkable. Cardiovascular: There is mild vascular calcification within the thoracic aorta without evidence of an eurysmal dilation. Lung Parenchyma and Airways: There is moderate diffuse centrilobular emphysema. There is a 1.2 cm ple ural-based nodular density with some irregular margins in the right lower lobe on series 4 image 31 w hich is unchanged. This is unchanged when remeasured on previous examinations dating back to 3. There are no new or enlarging nodules. The lungs otherwise appear clear. Bones: No fracture or aggressive osseous lesion. IMPRESSION: 1. No adenopathy identified. 2. Unchanged right lower lobe pulmonary nodule. This is unchanged dating back to 07/12/2023. This is n oted to be new at that time. Follow-up in 6 months is recommended. 3. Moderate emphysema. 4. No acute findings otherwise seen.
== END | disposition home or self-care (01) ==
LOC: RADCTMAIN 11:13
PROVIDERS: ATTEND Internal Medicine Hematology & Oncology
DX: Z09 Encounter for follow-up examination after completed treatment for conditions other than malignant neoplasm (principal); C82.48 Follicular lymphoma grade IIIb, lymph nodes of multiple sites; R91.1 Solitary pulmonary nodule; M25.50 Pain in unspecified joint; J43.9 Emphysema, unspecified
CPT/HCPCS: 71250

== ENCOUNTER → 2024-07-05 | Outpatient (CLI) | payer MEDICARE, OTHER ==
[2024-07-05 11:07] LABS: African American GFR (CKD) >90 (>60 ml/min/1.73 sqM); Blood Urea Nitrogen 18 mg/dL (7-17); Non-African American GFR(CKD) >90 (>60 ml/min/1.73 sqM)
--- NOTE | 2024-07-05 12:48 | CT ---
EXAMINATION TYPE: CT chest w con DATE OF EXAM: 07/05/2024 COMPARISON: , 10/12/2023 and 07/24/2019 HISTORY: LUNG NODULE, NON HODGKINS LYMPHOMA CT DLP: 183.8 mGycm Automated exposure control for dose reduction was used. TECHNIQUE: CT scan of the chest is performed with IV Contrast, patient injected with 100 mL of Isovue 300. MIP Images are created on CT scanner and reviewed. 3D reconstructed images are created on an independent workstation and reviewed. FINDINGS: There are marked emphysematous changes. There is a 12 to 13 mm right lower lobe pulmonary nodule essentially stable dating back to 3. It is significantly larger than that seen on 07/24/2019. Given history of lymphoma, PET scan is rec ommended for further evaluation. In lieu of a PET scan, a three-month follow-up CT is recommended for further evaluation. There are no new lung nodules or masses. There is no airspace consolidation. There is no abnormal interstitial density. There is no pleural effusion or pneumothorax. The great vessels chest are normal and there is no mediastinal, hilar or axillary adenopathy. Limited scanning through the upper abdomen reveals no gross abnormality. No focal osseous lesions are seen. IMPRESSION: 12 to 13 mm right lower lobe pulmonary nodule. Given history of lymphoma and growth compared to the p rior study dating back to 07/24/2019, a PET scan is recommended for further evaluation. Otherwise [address]th follow-up CT is recommended to confirm stability
== END | disposition home or self-care (01) ==
LOC: RADCTMAIN 10:21
PROVIDERS: ATTEND Internal Medicine Hematology & Oncology
DX: C82.48 Follicular lymphoma grade IIIb, lymph nodes of multiple sites
CPT/HCPCS: 36415; 71260; 82565; 84520